=== PATIENT | female | born 1985 | race Two or more races ===

== ENCOUNTER 2021-07-17 07:57 | Emergency (ER) | payer MEDICAID, OTHER ==
[~2021-07-17] VITALS: Ht 160 cm; Wt 68.0 kg
[2021-07-17 08:34] VITALS: BP 131/88
[2021-07-17] MEDS ORDERED: InsuLIN REG 1unit/0.01ml Soln (100units/ml) SC ONE (09:15)
[2021-07-17 09:35] LABS: Urine Bacteria FEW /hpf (None Seen); Urine Blood Negative /uL (Negative); Urine Mucus FEW (None Seen); Urine Specific Gravity 1.048 (1.001-1.035); Urine WBC 10 /hpf (0 - 5)
[2021-07-17 09:46] LABS: Basophils # (auto) 0.2 10 ^3/uL (0-0.2); Basophils % (auto) 1.6 % (0.0-2.0); Eosinophils # (auto) 0.1 10 ^3/uL (0-0.8); Eosinophils % (auto) 1.3 % (0.0-7.0); Hematocrit 42.1 % (36.0-46.0); Hemoglobin 14.4 g/dL (12.2-16.2); Lymphocytes % (auto) 38.8 % (10.0-50.0); Mean Corpuscular Hemoglobin 29.7 pg (28.0-32.0); Mean Corpuscular Hgb Conc. 34.2 g/dL (32.0-36.0); Mean Corpuscular Volume 86.8 fL (80.0-100.0); Monocytes # (auto) 0.7 10 ^3/uL (0-1.3); Monocytes % (auto) 6.5 % (0.0-12.0); Neutrophils # (auto) 5.4 10 ^3/uL (1.6-8.6); Neutrophils % (auto) 51.8 % (37.0-80.0); Nucleated Red Blood Cells % 0.1 %; Red Blood Cells 4.85 10^6/uL (4.0-5.20); Red Cell Distribution Width 12.4 % (11.8-14.3); White Blood Cell 10.4 10^3/uL (4.4-10.8)
[2021-07-17 10:04] LABS: Calcium 8.5 mg/dL (8.5-10.1); Potassium 3.8 mmol/L (3.5-5.1)
== END 2021-07-17 10:24 | disposition home or self-care (01) ==
LOC: ER 07:57 → EDBD 07:57 → ER 10:24
DX: E11.65 Type 2 diabetes mellitus with hyperglycemia (principal); N39.0 Urinary tract infection, site not specified; Z76.0 Encounter for issue of repeat prescription
CPT/HCPCS: 36415; 80048; 81001; 82962; 85025; 96372; 99283; J1815

== ENCOUNTER 2021-10-30 21:06 | Emergency (ER) | payer MEDICAID ==
[~2021-10-30] VITALS: Ht 154.9 cm; Wt 58.1 kg
[2021-10-30] MEDS ORDERED: InsuLIN REG 1unit/0.01ml Soln (100units/ml) SC ONE (21:45)
[2021-10-30 23:26] LABS: BUN/Creatinine Ratio 26.5; Calcium 8.8 mg/dL (8.5-10.1); Potassium 4.4 mmol/L (3.5-5.1)
[2021-10-31 00:40] VITALS: BP 125/72
== END 2021-10-31 00:22 | disposition home or self-care (01) ==
LOC: ER 21:06 → EDBD 21:06 → ER 10-31 00:22
DX: S20.111A Abrasion of breast, right breast, initial encounter (principal); E11.65 Type 2 diabetes mellitus with hyperglycemia; Y08.89XA Assault by other specified means, initial encounter; Y93.89 Activity, other specified; Y92.89 Other specified places as the place of occurrence of the external cause; Y99.8 Other external cause status
CPT/HCPCS: 36415; 80048

== ENCOUNTER → 2021-11-19 | Emergency (ER) | payer MEDICAID ==
[~2021-11-19] VITALS: Ht 154.9 cm; Wt 62.1 kg
[2021-11-19 03:11] VITALS: BP 127/85
== END | disposition left against medical advice (07) ==
LOC: ER 03:10
DX: S09.8XXA Other specified injuries of head, initial encounter (principal); Z53.21 Procedure and treatment not carried out due to patient leaving prior to being seen by health care provider; Y04.8XXA Assault by other bodily force, initial encounter; Y93.89 Activity, other specified; Y92.89 Other specified places as the place of occurrence of the external cause; Y99.8 Other external cause status

== ENCOUNTER 2022-02-02 23:25 | Emergency (ER) | payer MEDICAID ==
[~2022-02-02] VITALS: Ht 154.9 cm; Wt 61.2 kg
[2022-02-03 00:35] LABS: Urine Bacteria FEW /hpf (None Seen); Urine Blood 2+ /uL (Negative); Urine Mucus FEW (None Seen); Urine Specific Gravity 1.042 (1.001-1.035); Urine WBC 4 /hpf (0 - 5)
[2022-02-03 01:07] LABS: Basophils # (auto) 0 10 ^3/uL (0-0.2); Basophils % (auto) 0.3 % (0.0-2.0); Eosinophils # (auto) 0.1 10 ^3/uL (0-0.8); Hemoglobin 13.4 g/dL (12.2-16.2); Monocytes # (auto) 0.8 10 ^3/uL (0-1.3); Monocytes % (auto) 6.4 % (0.0-12.0)
[2022-02-03 01:08] LABS: Eosinophils % (auto) 0.6 % (0.0-7.0); Hematocrit 40.6 % (36.0-46.0); Lymphocytes # (auto) 3.1 10 ^3/uL (0.4-5.4); Lymphocytes % (auto) 23.9 % (10.0-50.0); Mean Corpuscular Hemoglobin 29.9 pg (28.0-32.0); Mean Corpuscular Hgb Conc. 33.1 g/dL (32.0-36.0); Mean Corpuscular Volume 90.5 fL (80.0-100.0); Neutrophils # (auto) 8.8 10 ^3/uL (1.6-8.6); Neutrophils % (auto) 68.8 % (37.0-80.0); Red Blood Cells 4.49 10^6/uL (4.0-5.20); Red Cell Distribution Width 13.7 % (11.8-14.3); White Blood Cell 12.8 10^3/uL (4.4-10.8)
[2022-02-03 01:24] LABS: Calcium 9.2 mg/dL (8.5-10.1); Potassium 4.6 mmol/L (3.5-5.1)
[2022-02-03 01:28] LABS: Albumin 3.5 g/dL (3.4-5.0); BUN/Creatinine Ratio 17.9
[2022-02-03 01:30] LABS: Bilirubin, Total 0.2 mg/dL (0.2-1.0); Total Protein 7.5 g/dL (6.4-8.2)
[2022-02-03] MEDS ORDERED: InsuLIN REG 1unit/0.01ml Soln (100units/ml) IV ONE (03:45)
[2022-02-03] MEDS ORDERED: SODIUM CHLORIDE 0.9% 1,000 ML IV ONE (03:45)
[2022-02-03 06:00] VITALS: BP 98/59
[2022-02-03] MEDS ORDERED: CEPHALEXIN 250 MG CAP PO ONE (06:45)
[2022-02-03] MEDS ORDERED: SITA50TA PO (09:36)
[2022-02-03] MEDS ORDERED: METF-490 PO (09:36)
[2022-02-03] MEDS ORDERED: CEPH-509 PO (09:41)
== END 2022-02-03 10:15 | disposition home or self-care (01) ==
LOC: ER 23:25
DX: S62.615A Displaced fracture of proximal phalanx of left ring finger, initial encounter for closed fracture (principal); N39.0 Urinary tract infection, site not specified; E11.65 Type 2 diabetes mellitus with hyperglycemia; Z20.822 Contact with and (suspected) exposure to COVID-19; X58.XXXA Exposure to other specified factors, initial encounter; Y93.89 Activity, other specified; Y92.89 Other specified places as the place of occurrence of the external cause; Y99.8 Other external cause status
CPT/HCPCS: 29125; 36415; 73140; 80053; 81001; 81025; 82962; 85025; 87426; 96361; 96374; 99284; J1815; J7030